=== PATIENT | female | born 1985 | race African-American/Black ===

== ENCOUNTER 2018-01-20 15:32 | Emergency (ER) | payer OTHER ==
[~2018-01-20] VITALS: Ht 157.5 cm; Wt 59.0 kg
--- NOTE | 2018-01-20 16:40 | Emergency Room Report ---
History of Present Illness General Chief Complaint: Skin Rash/Abscess Source: Patient Present Illness HPI 32-year-old female presents to the emergency department complaining of itching, swelling since 3 AM this morning. Patient reports progressive hives. Patient denies hx of allergies. Pt. denies fevers, chills or swollen tender lymph nodes. Reports hives are generalized on face, abdomen , thighs and bilateral UE 's. Denies new medications or body washes or creams. Denies swelling of the lips , tongue , throat or airway. Denies wheezing, or shortness of breath. Denies recent travel, recent illness or ill contacts. denies blisters, oral lesions, or sloughing of the skin. Denies pain. pt. took hot shower and reports that this made her symptoms worse. took 2 Benadryl this am. Allergies: Coded Allergies: PENICILLINS (Verified Allergy, Unknown, 01/20/18) Patient History Past Medical History: see triage record Past Surgical History: none Pertinent Family History: none Last Menstrual Period: jan 2018 Reviewed Nursing Documentation: PMH: Agreed; PSxH: Agreed Nursing Documentation-PMH Past Medical History: No Stated History Review of Systems All Other Systems: negative except mentioned in HPI Physical Exam Vital Signs Date Time Temp Pulse Resp B/P (MAP) Pulse Ox O2 Delivery O2 Flow Rate FiO2 01/20/18 15:43 98.6 99 18 138/80 98 Room Air Sp02 EP Interpretation: reviewed, normal General Appearance: no apparent distress, alert, GCS 15, non-toxic Head: normocephalic, atraumatic Eyes: bilateral eye normal inspection ENT: hearing grossly normal, no angioedema, normal voice, moist mucus membranes , other - no oral lesions, no swelling of the lips or tongue Neck: full range of motion Respiratory: lungs clear, normal breath sounds, no respiratory distress, no accessory muscle use, no wheezing, speaking full sentences Cardiovascular #1: regular rate, rhythm, no edema Gastrointestinal: non tender, soft, other - hives on abdomen Rectal: deferred Musculoskeletal: back normal, gait/station normal, normal range of motion, non- tender Neurologic: alert, oriented x3, responsive, motor strength/tone normal, sensory intact, normal gait, speech normal, grossly normal Psychiatric: judgement/insight normal Skin: normal color, warm/dry, well hydrated, rash - diffuse coalescing raised plaques, light erythema no warmth, no blisters or vessicles, no targetoid lesions Lymphatic: no adenopathy Medical Decision Making PA Attestation Dr. Zelaya is my supervising Physician whom patient management has been discussed with. Diagnostic Impression: Primary Impression: Allergic reaction Qualified Codes: T78.40XA - Allergy, unspecified, initial encounter Additional Impression: Rash and other nonspecific skin eruption ER Course 32-year-old female presents to the emergency department complaining of itching, swelling since 3 AM this morning. Patient reports progressive hives. Patient denies hx of allergies. Pt. denies fevers, chills or swollen tender lymph nodes. Reports hives are generalized on face, abdomen , thighs and bilateral UE 's. Denies new medications or body washes or creams. Denies swelling of the lips , tongue , throat or airway. Denies wheezing, or shortness of breath. Denies recent travel, recent illness or ill contacts. denies blisters, oral lesions, or sloughing of the skin. Denies pain. pt. took hot shower and reports that this made her symptoms worse. took 2 Benadryl this am. Ddx considered but are not limited to cellulitis, allergic reaction/ hives,SJS, TEN, angio edema, erythema multiforme just to name a few. Vital signs: are WNL, pt. is afebrile H&PE are most consistent with allergic reaction with skin manifestation, no evidence of impending airway compromise or anaphylaxis. ORDERS: none required at this time, the diagnosis is clinical ED INTERVENTIONS: IM solu-medrol, IM Benadryl DISCHARGE: At this time pt. is stable for d/c to home. Will provide printed patient care instructions, and any necessary prescriptions. Care plan and follow up instructions have been discussed with the patient prior to discharge. Last Vital Signs Date Time Temp Pulse Resp B/P (MAP) Pulse Ox O2 Delivery O2 Flow Rate FiO2 01/20/18 15:43 98.6 99 18 138/80 98 Room Air Disposition: HOME, SELF-CARE Condition: Stable Scripts Hydroxyzine Hcl (HYDROXYZINE HCL) 25 Mg Tablet 25-50 MG PO Q6HR PRN for Itching/Pruritis, #30 TAB Prov: Linn Oliver 01/20/18 Prednisone* (PREDNISONE*) 20 Mg Tablet 40 MG ORAL DAILY for 5 Days, #10 TAB Prov: Linn Oliver 01/20/18 Referrals: NON PHYSICIAN (PCP) Patient Instructions: Allergies, [id number], Allergy Skin Testing Additional Instructions: Take medications as directed. Follow up with a Primary Care Provider in 3-5 days, even if your symptoms have resolved. --Please review list of primary care clinics, if you do not already have a primary care provider Return sooner to ED if new symptoms occur, or current symptoms become worse. Do not drink alcohol, drive, or operate heavy machinery while taking Hydroxyzine as this may cause drowsiness. - Please note that this Emergency Department Report was dictated using [employer] beverage server technology software, occasionally this can lead to erroneous entry secondary to interpretation by the dictation equipment. Linn Oliver Jan 20, 2018 16:40
[2018-01-20] MEDS ORDERED: DiphenhydrAMINE 50mg/ml Inj IM ONE (16:45)
[2018-01-20] MEDS ORDERED: Solu-MEDROL 125mg Inj IM ONE (16:45)
[2018-01-20] MEDS ORDERED: HYDROXYZINE HCL25 M1 PO (17:44)
[2018-01-20] MEDS ORDERED: PREDNISONE20 MG ORAL (17:44)
[2018-01-20 18:02] VITALS: BP_SYST 129; BP_SYST 138; BP_DIAS 80
== END 2018-01-20 18:08 | disposition home or self-care (01) ==
LOC: EMR 16:18
DX: T78.40XA Allergy, unspecified, initial encounter (principal); X58.XXXA Exposure to other specified factors, initial encounter; R21 Rash and other nonspecific skin eruption; Z88.0 Allergy status to penicillin
CPT/HCPCS: 96372; 99283; J1200; J2930

== ENCOUNTER 2019-05-23 12:18 | Emergency (ER) | payer OTHER ==
[~2019-05-23] VITALS: Ht 157.5 cm; Wt 59.0 kg
[~2019-05-23 12:18] MED LIST: HYDROXYZINE HCL25 M1 PO; PREDNISONE20 MG ORAL
[2019-05-23 12:35] VITALS: BP 125/81
--- NOTE | 2019-05-23 12:38 | Emergency Room Report ---
History of Present Illness General Chief Complaint: Skin Rash/Abscess Source: Patient Present Illness HPI 33-year-old female with no significant past medical history here complaining of 1 day of left hand swelling. Patient reports there was pruritic yesterday as she suspected it might have been bit by a spider. Denies any fever and chills, complains of minimal pain at this time. No cellulitis noted. Denies headache and dizziness. Denies fever and chills, recent travel or coming contact with over travel. Has not taken medication for symptom relief. Denies COVID-19 risk:Travel to affect: No Has patient experienced sandoval: No Allergies: Coded Allergies: PENICILLINS (Verified Allergy, Unknown, 01/20/18) Patient History Past Medical History: see triage record Past Surgical History: none Pertinent Family History: none Last Menstrual Period: on period Now: No Immunizations: UTD Reviewed Nursing Documentation: PMH: Agreed; PSxH: Agreed Nursing Documentation-PMH Past Medical History: No Stated History Review of Systems All Other Systems: negative except mentioned in HPI Physical Exam Vital Signs Date Time Temp Pulse Resp B/P (MAP) Pulse Ox O2 Delivery O2 Flow Rate FiO2 05/23/19 12:25 98.4 75 19 125/81 (96) 99 Room Air Sp02 EP Interpretation: reviewed, normal General Appearance: no apparent distress, alert, GCS 15, non-toxic Head: normocephalic, atraumatic Eyes: bilateral eye normal inspection, bilateral eye PERRL ENT: hearing grossly normal, normal pharynx, no angioedema, normal voice Neck: full range of motion, no meningismus, no bony tend, supple/symm/no masses Respiratory: chest non-tender, lungs clear, normal breath sounds, no rhonchi, no retraction, no wheezing, speaking full sentences Cardiovascular #1: regular rate, rhythm, no edema, no murmur Cardiovascular #2: 2+ radial (R), 2+ radial (L) Gastrointestinal: normal bowel sounds, non tender, soft, non-distended, no guarding, no rebound Genitourinary: no CVA tenderness Musculoskeletal: back normal, non-tender, swelling - Left hand Neurologic: alert, motor strength/tone normal, oriented x3, sensory intact, responsive, speech normal Psychiatric: judgement/insight normal, memory normal, mood/affect normal, no suicidal/homicidal ideation Skin: no rash Lymphatic: no adenopathy Medical Decision Making PA Attestation All my diagnosis and treatment plans were reviewed ad discussed with my supervising physician Dr. Garcia Diagnostic Impression: Primary Impression: Insect bite ER Course 33-year-old female with no significant past medical history here complaining of 1 day of left hand swelling. Patient reports there was pruritic yesterday as she suspected it might have been bit by a spider. Denies any fever and chills, complains of minimal pain at this time. No cellulitis noted. Denies headache and dizziness. Denies fever and chills, recent travel or coming contact with over travel. Has not taken medication for symptom relief. Denies Ddx considered but are not limited to : Cellulitis, superficial infection, abscess Vital signs: are WNL, pt. is afebrile H&PE are most consistent with: Superficial infection right ORDERS: Bactrim DS, prednisone, Motrin ED INTERVENTIONS: None required at this time. DISCHARGE: At this time pt. is stable for d/c to home. Will provide printed patient care instructions, and any necessary prescriptions. Care plan and follow up instructions have been discussed with the patient prior to discharge. To follow primary care provider, take medication as directed, if worsening symptoms return to the emergency room Last Vital Signs Date Time Temp Pulse Resp B/P (MAP) Pulse Ox O2 Delivery O2 Flow Rate FiO2 05/23/19 12:25 98.4 75 19 125/81 (96) 99 Room Air Disposition: HOME, SELF-CARE Condition: Stable Scripts Ibuprofen* (MOTRIN*) 600 Mg Tablet 600 MG ORAL Q8H PRN for For Pain, #30 TAB 0 Refills Prov: Shannan Dooley 05/23/19 Prednisone* (PREDNISONE*) 20 Mg Tablet 20 MG ORAL DAILY for 5 Days, #5 TAB 0 Refills Prov: Shannan Dooley 05/23/19 Trimethoprim/Sulfamethoxazole 160/800* (BACTRIM DS TABLET*) 1 Each Tablet 1 TAB ORAL TWICE A DAY for 7 Days, #14 TAB Prov: Shannan Dooley 05/23/19 Patient Instructions: Insect Bite, [id number] Additional Instructions: Take medication as directed, follow-up primary care provider, increase oral hydration, if worsening symptoms return to the emergency room Shannan Dooley May 23, 2019 12:38
[2019-05-23] MEDS ORDERED: PREDNISONE20 MG ORAL (12:39)
[2019-05-23] MEDS ORDERED: BACTRIM DS TAB1 EAC1 ORAL (12:39)
[2019-05-23] MEDS ORDERED: IBUPROFEN600 MG ORAL (12:39)
[2019-05-23 12:45] VITALS: BP 125/81
[2019-05-23] MEDS ORDERED: Metoclopramide 10mg/2ml Inj IVP ONE (13:00)
== END 2019-05-23 12:45 | disposition home or self-care (01) ==
LOC: EMR 12:25
DX: S60.562A Insect bite (nonvenomous) of left hand, initial encounter (principal); W57.XXXA Bitten or stung by nonvenomous insect and other nonvenomous arthropods, initial encounter; Y92.9 Unspecified place or not applicable; Z88.0 Allergy status to penicillin
CPT/HCPCS: 96374; Z7502; 99284